=== PATIENT | female | born 1985 | race Caucasian/White ===

== ENCOUNTER 2016-11-15 13:02 | Emergency (ER) | payer MEDICAID ==
[~2016-11-15] VITALS: Ht 149.9 cm; Wt 68.0 kg
[~2016-11-15 13:02] MED LIST: FERR-43 PO; PREN-88 PO
[2016-11-15 13:35] VITALS: BP 115/75
[2016-11-15] MEDS ORDERED: TYLENOL (13:35)
[2016-11-15] MEDS ORDERED: KETOROLAC 60MG/2ML VIAL IM ONE (15:00)
== END 2016-11-15 16:44 | disposition home or self-care (01) ==
LOC: ER 15:39
DX: S93.504A Unspecified sprain of right lesser toe(s), initial encounter (principal); W22.8XXA Striking against or struck by other objects, initial encounter; Z90.49 Acquired absence of other specified parts of digestive tract; Y93.89 Activity, other specified; Y92.9 Unspecified place or not applicable; Y99.8 Other external cause status
CPT/HCPCS: 73630; 81025; 96372; 99284; J1885; 96374

== ENCOUNTER 2022-05-27 14:28 | Emergency (ER) | payer MEDICAID ==
[~2022-05-27] VITALS: Ht 154.9 cm; Wt 82.0 kg
[~2022-05-27 14:28] MED LIST changes: -FERR-43 PO; -PREN-88 PO; +TYLENOL
[2022-05-27 14:36] VITALS: BP 107/60
[2022-05-27 18:18] LABS: BASOPHILS % 0.7 % (0.0-2.0); EOSINOPHILS % 1.8 % (0.0-5.0); HEMATOCRIT. 40.5 % (36.0-48.0); LYMPHOCYTES % 27.7 % (20.0-50.0); MEAN CORPUSCULAR HEMOGLOBIN 31.4 pg (28.0-32.0); MEAN CORPUSCULAR VOLUME 90.7 fL (81.0-99.0); MEAN PLATELET VOLUME 10.7 fl (7.4-10.4); MONOCYTES % 5.9 % (2.0-8.0); NEUTROPHILS % 63.9 % (40.0-76.0); PLATELET 198 x1000/uL (130-400); RED BLOOD CELL COUNT 4.47 mill/uL (4.2-5.4); RED CELL DISTRIBUTION WIDTH 12.5 % (11.6-14.6)
[2022-05-27 18:30] LABS: CHLORIDE 101 mEq/L (98-107)
[2022-05-27 19:13] LABS: B-HCG QUANTITATIVE 4718 mIU/mL (<3)
== END 2022-05-27 20:29 | disposition home or self-care (01) ==
LOC: ER 14:28
DX: O99.891 Other specified diseases and conditions complicating pregnancy (principal); R10.2 Pelvic and perineal pain; O34.11 Maternal care for benign tumor of corpus uteri, first trimester; D25.9 Leiomyoma of uterus, unspecified; O20.8 Other hemorrhage in early pregnancy; Z3A.10 10 weeks gestation of pregnancy; O09.521 Supervision of elderly multigravida, first trimester; W10.8XXA Fall (on) (from) other stairs and steps, initial encounter; Y93.89 Activity, other specified; Y92.89 Other specified places as the place of occurrence of the external cause
CPT/HCPCS: 36415; 76801; 80053; 81025; 84702; 85025; 86850; 86900; 99284